=== PATIENT | male | born 1990 | race Caucasian/White ===

== ENCOUNTER 2020-02-24 17:36 | Emergency (ER) | payer SELFPAY ==
[~2020-02-24] VITALS: Ht 167.6 cm; Wt 64.0 kg
[2020-02-24] MEDS ORDERED: PROVENTIL HFA6.7 GM INH (19:22)
== END 2020-02-24 20:12 | disposition home or self-care (01) ==
LOC: ED 17:36
DX: J45.909 Unspecified asthma, uncomplicated (principal); Z76.0 Encounter for issue of repeat prescription

== ENCOUNTER → 2020-03-02 | Outpatient (CLI) | payer SELFPAY ==
[~2020-03-02] MED LIST: PROVENTIL HFA6.7 GM INH
== END | disposition home or self-care (01) ==
LOC: RESCLI 10:59
PROVIDERS: ATTEND Family Medicine
DX: J45.909 Unspecified asthma, uncomplicated (principal); E66.3 Overweight; Z23 Encounter for immunization; Z71.89 Other specified counseling; Z87.891 Personal history of nicotine dependence